=== PATIENT | female | born 1975 | race Caucasian/White ===

== ENCOUNTER → 2022-12-23 | Outpatient (CLI) | payer MEDICAID ==
--- NOTE | 2022-12-23 15:14 | USB ---
Reason for Exam: Clinical finding. Risk Values: Jeannine 5 year model risk: 0.6%. NCI Lifetime model risk: 6.3%. Technique: Method: Whole Breast Handheld. Findings: The whole breast of both breasts, the axilla of both breasts and the retroareolar of both breasts were scanned. A complete US of all four quadrants of both breasts, axilla, and retro-areolar region were reviewed. Right: * Extremely dense tissues are present throughout. * At the 10:00 position, 6 cm from the nipple, there is a oval hypoechoic area measuring 1.2 x 1.1 x 0.7 cm. Unclear if this represents some focal prominent tissue with and adjacent small cyst. Alternatively, this could represent an intracystic lesion and follow-up is recommended. * Dominant cyst 10:00 position 6 cm from the nipple measuring 3.3 cm likely mammographic correlate. * Additional cysts are present throughout. * No axillary lymphadenopathy. Left: * Extremely dense tissues are present throughout. * There is a round hypoechoic lesion with a edge shadowing at the 3:00 position, 4 cm from the nipple, possibly debris-filled cyst for which six-month follow-up is recommended. * Dominant cyst 12:00 position, 4 cm from the nipple measuring up to 2.8 cm. * A couple additional smaller benign cysts are present throughout. * No axillary lymphadenopathy. Overall Assessment: Probably benign, BI-RAD 3 Management: Diagnostic Breast Ultrasound of both breasts in 6 months. Diagnostic Mammogram of both breasts in 6 months. In time for the patient's annual exam. Ultrasound follow-up for right breast 10:00 and left breast 3:00. In addition, if any of the patient's dominant cysts become symptomatic, percutaneous aspiration can be considered. Patient should continue monthly self breast exams. Results were given to the patient verbally at the time of exam. Electronically signed and approved by: Bear Jarvis M.D. Radiologist
== END | disposition home or self-care (01) ==
LOC: RADUSWWP 14:05
PROVIDERS: ATTEND Family Medicine
DX: R92.8 Other abnormal and inconclusive findings on diagnostic imaging of breast (principal); N60.01 Solitary cyst of right breast; N60.02 Solitary cyst of left breast